=== PATIENT | female | born 1990 | race Caucasian/White ===

== ENCOUNTER 2017-02-28 19:50 | Emergency (ER) | payer SELFPAY ==
[~2017-02-28] VITALS: Ht 154.9 cm; Wt 43.9 kg
[~2017-02-28 19:50] MED LIST: ACET-1256 PO
[2017-02-28 19:53] VITALS: TEMP 36.8; Ht 154.9 cm; Wt 43.9 kg
[2017-02-28] MEDS ORDERED: HYDROCODONE/ACETAMOPHEN 5/325MG TAB PO ONE (20:15)
--- NOTE | 2017-02-28 20:26 | DIAGNOSTIC IMAGING REPORT ---
RIGHT HAND MIN 3 VIEWS ROUTINE CLINICAL HISTORY: R hand pain Right COMPARISON: None. DISCUSSION: The bones and joint spaces appear intact. There is no evidence of fracture, dislocation or bony disease. There is no evidence for soft tissue swelling. IMPRESSION: Negative study. Electronically signed by: Tanvir Merino M.D. 02/28/2017 8:25 PM Dictated Date/Time: 02/28/2017 8:23 PM
--- NOTE | 2017-02-28 20:26 | DIAGNOSTIC IMAGING REPORT ---
RIGHT FOREARM 2 VIEWS ROUTINE CLINICAL HISTORY: R forearm pain Right COMPARISON: None. DISCUSSION: The bones and joint spaces appear intact. There is no evidence of fracture, dislocation or bony disease. There is no evidence for soft tissue swelling. IMPRESSION: Negative study. Electronically signed by: Tanvir Merino M.D. 02/28/2017 8:25 PM Dictated Date/Time: 02/28/2017 8:25 PM
--- NOTE | 2017-02-28 20:27 | DIAGNOSTIC IMAGING REPORT ---
RIGHT WRIST MIN 3 VIEWS ROUTINE CLINICAL HISTORY: R wrist pain Right COMPARISON: None. DISCUSSION: The bones and joint spaces appear intact. There is no evidence of fracture, dislocation or bony disease. There is no evidence for soft tissue swelling. IMPRESSION: Negative study. Electronically signed by: Tanvir Merino M.D. 02/28/2017 8:26 PM Dictated Date/Time: 02/28/2017 8:26 PM
[2017-02-28] MEDS ORDERED: HYDR-5688 PO (20:42)
[2017-02-28] MEDS ORDERED: NORCO 5/325MG HOME PACK PO ONE (20:45)
[2017-02-28 20:49] VITALS: BP 121/66; PULSE 71; O2SAT 99
[2017-02-28] MEDS ORDERED: IBUP-1050 PO (20:54)
--- NOTE | 2017-03-01 16:02 | EMERGENCY ROOM VISIT NOTE ---
ED Visit Note First contact with patient: 19:55 Chief Complaint: Right hand pain. History of Present Illness: Ms. Flanagan is a 26-year-old white female who ambulates into the ED complaining of right hand pain over the third and fourth MCP joints and metacarpals, right wrist pain over the distal radius and ulna and right mid forearm pain. Patient reports approximately 30 minutes ago she became angry and punched a wall. She reports after punching the wall she immediately had severe pain in the areas noted above. She describes this pain as a combination of burning, sharp and throbbing. She rates her discomfort 8/10. Her pain is nonradiating. Her pain worsens with palpation, all movements of the forearm, wrist and the hand. She has not identified any alleviating factors related to the pain. She has not taken any medications for pain prior to arrival at the hospital. Associated with her pain she reports she has paresthesias in the middle, ring and little fingers. She denies any associated shoulder pain, elbow pain, hand weakness and previous significant injuries or surgeries to the right hand. Review of Systems: As noted above in history of present illness. Past Medical History: Status post appendectomy. Current Medications: Patient denies. Allergies to Medications: Clindamycin, Zofran, Bactrim. Social History: Patient is not employed; she feels safe in her home environment ; she denies tobacco and alcohol use. Physical Examination: Vital Signs: Date Time Temp Pulse Resp B/P (MAP) Pulse Ox O2 Delivery O2 Flow Rate FiO2 02/28/17 20:49 71 16 121/66 99 02/28/17 19:53 36.8 86 18 116/77 100 Room Air GENERAL: 26-year-old female in moderate distress due to pain, nontoxic-appearing , afebrile and hemodynamically stable. NEUROLOGICAL: Awake, alert and oriented to person, place and time. Answering questions appropriately and following commands. Normal gait. SKIN: Warm, dry and pink. Right Hand: Small round 2-3 mm superficial abrasion over the posterior third MCP joint without bleeding. RIGHT UPPER EXTREMITY: No gross bony deformity. No tenderness in the shoulder or elbow. Moderate tenderness in the mid forearm without bony deformity, bony crepitus, swelling or ecchymosis. Full range of motion in pronation and supination of the forearm against resistance. Moderate tenderness over the distal radius and ulna without bony deformity, bony crepitus, swelling or ecchymosis. Decreased range of motion in all movements of the wrist due to pain. Moderate to severe tenderness over the third, fourth and fifth metacarpals and MCP joints. There is early ecchymosis over the third and fourth MCP joints. I do not appreciate any bony deformity, bony crepitus. She refused to do range of motion testing with the MCP joints due to pain. She was able to distinguish light sensations to all fingers of the hand. The hand was warm and pink and capillary refill was brisk. ED Course: Patient is assessed as noted above. Patient's medication list was reviewed. Patient was given ice and one 5/325 mg [place] tablet by mouth for pain. Right Forearm X-Rays: Were read by myself and the radiologist and shows no acute fractures, dislocations or soft tissue swelling. Right Wrist X-Rays: Were read by myself and the radiologist showing no acute fractures or dislocations. No evidence of soft tissue swelling. Right Hand X-Rays: Were read by myself and the radiologist showing no acute fractures or dislocations. No evidence of soft tissue swelling. Patient was placed in a wrist lacer splint. Patient was educated about today's findings and instructed on her treatment plan ; she verbalizes understanding and agreement with this plan. Clinical Impression: Right hand contusion. Right forearm and wrist pain. Decision-Making: Initially my differential diagnosis I considered contusion, hand fracture, wrist fracture, forearm fracture, MCP joint dislocation and other causes. Disposition: Patient discharged home in stable condition accompanied by male friend; prior to departure she was reassessed and subjectively reported she was feeling the same. Plan: Comfort measures were discussed with the patient including rest, ice, splint use and a sliding pain scale of ibuprofen, acetaminophen and [place]; she was educated on narcotic precautions and her name was evaluated in this state database and no red flags were noted. Patient was also educated on wound care and signs of infection. Patient was encouraged to follow-up with commercial loan specialist if no better in 7 -10 days. Patient was encouraged return the ED for worsening/uncontrolled pain, uncontrolled swelling, hand/finger weakness, worsening tingling or any new/ concerning symptoms.
== END 2017-02-28 20:51 | disposition home or self-care (01) ==
LOC: C.EDB 19:51 → C.EDD 20:51
DX: S60.221A Contusion of right hand, initial encounter (principal); M79.641 Pain in right hand; M25.531 Pain in right wrist; W22.8XXA Striking against or struck by other objects, initial encounter; Y92.89 Other specified places as the place of occurrence of the external cause